=== PATIENT | female | born 1945 | race Caucasian/White ===

== ENCOUNTER 2023-11-12 08:51 | Outpatient (CLI) | payer MEDICARE, BC | END 2023-11-12 23:59 | disposition home or self-care (01) | LOC: RAD 08:51 | PROVIDERS: ATTEND Physician Assistant | DX: S09.90XA Unspecified injury of head, initial encounter (principal); X58.XXXA Exposure to other specified factors, initial encounter; Y93.89 Activity, other specified; Y92.89 Other specified places as the place of occurrence of the external cause; Y99.8 Other external cause status | CPT/HCPCS: 70450 ==

== ENCOUNTER 2024-12-21 13:41 | Outpatient (CLI) | payer MEDICARE, BC ==
[2024-12-21 15:31] LABS: MEAN PLATELET VOLUME 8.9 FL (7.4-10.4); RED CELL DISTRIBUTION WIDTH 13.4 % (11.5-14.5)
[2024-12-21 16:11] LABS: LYMPHOCYTES % (MANUAL) 39 % (21-51); MONOCYTES % (MANUAL) 26 % (2-12); NEUTROPHILS % (MANUAL) 33 % (42-75)
[2024-12-21 16:12] LABS: REACTIVE LYMPHOCYTES % 2 % (0-0)
[2024-12-21 16:13] LABS: LARGE PLATELETS FEW; PLATELET ESTIMATE NORMAL
== END 2024-12-21 23:59 | disposition home or self-care (01) ==
LOC: RAD 13:41
PROVIDERS: ATTEND Physician Assistant
DX: R71.8 Other abnormality of red blood cells (principal)
CPT/HCPCS: 85007; 85025

== ENCOUNTER 2025-02-15 14:04 | Outpatient (CLI) | payer MEDICARE, BC | END 2025-02-15 23:59 | disposition home or self-care (01) | LOC: RAD 14:04 | PROVIDERS: ATTEND Physician Assistant | DX: D72.819 Decreased white blood cell count, unspecified (principal); R20.2 Paresthesia of skin | CPT/HCPCS: 36415; 80074; 86038; 86431; 86480; 86592; 86644; 86777 ==

== ENCOUNTER 2025-03-11 11:15 | Outpatient (CLI) | payer MEDICARE, BC ==
--- NOTE | 2025-03-11 12:28 | RADIOLOGY REPORT ---
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 COMPARISON: CT CT HEAD on DOS: 11/12/23 FINDINGS: There is no abnormal restricted diffusion to suggest acute infarction. There is moderate brain volume loss. Scattered T2 hyperintense foci within the white matter both cerebral hemispheres is most compatible with a mild burden of nonspecific chronic small vessel ischemic change. There is no evidence for acute ischemic changes, mass, mass effect, or extra- axial fluid collection. There is no hydrocephalus or midline shift. The cerebral sulci and subarachnoid cisterns are not effaced. The imaged paranasal sinuses are clear. The globes are intact. The midline structures, including the corpus callosum, are unremarkable. The intracranial flow voids are maintained. IMPRESSION: No acute intracranial abnormality seen. No evidence for acute infarct. Moderate brain volume loss. Mild chronic small vessel ischemic change.
== END 2025-03-11 23:59 | disposition home or self-care (01) ==
LOC: MRI02 11:15
PROVIDERS: ATTEND Physician Assistant
DX: I67.82 Cerebral ischemia (principal)
CPT/HCPCS: 70551